=== PATIENT | male | born 1990 | race Caucasian/White ===

== ENCOUNTER → 2020-09-26 | Outpatient (CLI) | payer OTHER | LOC: EXRD 10:49 | DX: M54.2 Cervicalgia (principal); M25.561 Pain in right knee; M25.562 Pain in left knee; R31.9 Hematuria, unspecified; N20.0 Calculus of kidney | CPT/HCPCS: 72040; 73560; 74018 ==

== ENCOUNTER → 2020-11-07 | Outpatient (CLI) | payer OTHER | LOC: EMI 08:37 | DX: G35 Multiple sclerosis (principal) | CPT/HCPCS: 70553; A9577 ==

== ENCOUNTER → 2020-12-15 | Outpatient (CLI) | payer OTHER | LOC: EXRD 14:15 | DX: D44.0 Neoplasm of uncertain behavior of thyroid gland (principal) | CPT/HCPCS: 76536 ==

== ENCOUNTER → 2021-05-30 | Outpatient (CLI) | payer OTHER | LOC: KOH-I 13:24 | DX: M51.16 Intervertebral disc disorders with radiculopathy, lumbar region (principal); M51.17 Intervertebral disc disorders with radiculopathy, lumbosacral region | CPT/HCPCS: 72148 ==

== ENCOUNTER 2021-06-10 21:47 | Emergency (ER) | payer OTHER ==
[2021-06-10 22:34] LABS: HEMOGLOBIN 17.5 gm/dl (14.0-17.5); RED BLOOD COUNT 5.82 M/UL (4.20-5.50); WHITE BLOOD COUNT 12.2 K/UL (4.5-11.0)
[2021-06-10 23:10] LABS: BUN/CREATININE RATIO 12 (0-10)
[2021-06-11] MEDS ORDERED: ZOFRAN4 MG PO (00:46)
[2021-06-11] MEDS ORDERED: PROTONIX40 MG PO (00:46)
[2021-06-11] MEDS ORDERED: HYDROCODON-ACE1 EAC4 PO (00:59)
== END 2021-06-11 01:10 | disposition home or self-care (01) ==
LOC: ER1 21:47
PROVIDERS: Physician Assistant Medical
DX: K85.90 Acute pancreatitis without necrosis or infection, unspecified (principal)
CPT/HCPCS: 80053; 81001; 83690; 85025; 96374; 96375; 96376; 99284; C9113; J2270; J2405; J7030; Q9967

== ENCOUNTER → 2021-08-06 | Outpatient (CLI) | payer OTHER ==
[~2021-08-06] MED LIST: FISH OIL 1,0001 EACH PO; HYDROCODON-ACE1 EAC4 PO; LYRICA50 MG PO; PROTONIX40 MG PO; ZOFRAN4 MG PO
[2021-08-06 11:28] LABS: BUN/CREATININE RATIO 15 (0-10)
== END ==
LOC: LAB 10:27
PROVIDERS: Orthopaedic Surgery
DX: Z01.812 Encounter for preprocedural laboratory examination (principal); M51.16 Intervertebral disc disorders with radiculopathy, lumbar region
CPT/HCPCS: 36415; 80048; 85610; 85730; 86850; 86900; 86901

== ENCOUNTER → 2021-08-08 | Day surgery (SDC) | payer OTHER | END | disposition home or self-care (01) | LOC: OR 05:09 | DX: M51.16 Intervertebral disc disorders with radiculopathy, lumbar region (principal); M48.07 Spinal stenosis, lumbosacral region; E88.2 Lipomatosis, not elsewhere classified; Z20.822 Contact with and (suspected) exposure to COVID-19; Z86.16 Personal history of COVID-19 | CPT/HCPCS: 72100; 76000; C1781; J0690; J1040; J1100; J1170; J1885; J2001; J2250; J2405; J2704; J3010; J3370; J7050; J7120; U0002 ==

== ENCOUNTER 2021-11-07 13:23 | Emergency (ER) | payer OTHER ==
[2021-11-07 14:51] LABS: HEMOGLOBIN 16.2 gm/dl (14.0-17.5); RED BLOOD COUNT 5.34 M/UL (4.20-5.50); WHITE BLOOD COUNT 13.9 K/UL (4.5-11.0)
[2021-11-07 15:22] LABS: BUN/CREATININE RATIO 14 (0-10)
== END 2021-11-07 16:51 | disposition home or self-care (01) ==
LOC: ER1 13:23
PROVIDERS: Family Medicine
DX: R07.9 Chest pain, unspecified (principal)
CPT/HCPCS: 71045; 80053; 82550; 82553; 83690; 84484; 85025; 93005; 99285

== ENCOUNTER → 2022-01-08 | Outpatient (CLI) | payer OTHER | LOC: US 10:00 | DX: R10.9 Unspecified abdominal pain (principal); R14.0 Abdominal distension (gaseous); R11.0 Nausea; K76.0 Fatty (change of) liver, not elsewhere classified | CPT/HCPCS: 76705 ==

== ENCOUNTER → 2022-01-14 | Outpatient (CLI) | payer OTHER | LOC: US 14:18 | DX: D44.0 Neoplasm of uncertain behavior of thyroid gland (principal) | CPT/HCPCS: 76536 ==